=== PATIENT | female | born 1995 | race Caucasian/White ===

== ENCOUNTER 2017-04-15 05:09 | Emergency (ER) | payer BC ==
[~2017-04-15] VITALS: Ht 162.6 cm; Wt 80.1 kg
[~2017-04-15 05:09] MED LIST: ACETAMINOPHEN500 MG PO; AUGMENTIN875 MG PO; BUTALB-APAP-CA1 EACH PO; Carbamazepine; DEPAKOTE ER500 MG PO; FIORICET,ESG1 TABLET PO; IMITREX25 MG PO; NAPROSYN500 MG PO; NO HOME MEDS; NORCO 5/3251 TABLET PO; PERCOCET 5/31 TABLET PO; PHENERGAN-CODE120 ML PO; PHENERGAN25 MG PR; TOPAMAX25 MG PO; TRILEPTAL300 MG PO; TROKENDI XR100 MG PO; TYLENOL WITH C1 EACH PO; VERAPAMIL HCL180 MG PO; VESTURA 3 MG-01 EACH PO; YASMIN,OCELL1 TABLET PO; YAZ 28 TABLET1 EACH PO; ZOFRAN ODT4 MG PO; ZOFRAN4 MG PO
[2017-04-15] MEDS ORDERED: AMOXICILLIN875 MG PO (05:37)
[2017-04-15 06:23] VITALS: BP 129/84
== END 2017-04-15 06:24 | disposition home or self-care (01) ==
LOC: EME 05:09
DX: H66.92 Otitis media, unspecified, left ear (principal); Z88.2 Allergy status to sulfonamides
CPT/HCPCS: 99281; 99283

== ENCOUNTER 2017-12-28 15:36 | Emergency (ER) | payer BC ==
[~2017-12-28] VITALS: Ht 162.6 cm; Wt 96.0 kg
[~2017-12-28 15:36] MED LIST changes: +AMOXICILLIN875 MG PO; +KEFLEX500 MG PO; +MOTRIN800 MG PO
[2017-12-28 18:05] VITALS: BP 116/84
== END 2017-12-28 18:00 | disposition home or self-care (01) ==
LOC: EME 15:36
DX: G43.909 Migraine, unspecified, not intractable, without status migrainosus (principal); Z86.79 Personal history of other diseases of the circulatory system; Z88.2 Allergy status to sulfonamides; Z88.8 Allergy status to other drugs, medicaments and biological substances
CPT/HCPCS: 99281; 99284; J1200; J2765; J7030